=== PATIENT | male | born 1970 | race Caucasian/White ===

== ENCOUNTER 2021-11-12 09:26 | Day surgery (SDC) | payer OTHER ==
[~2021-11-12] VITALS: Ht 180.3 cm; Wt 93.5 kg
[2021-11-12] MEDS ORDERED: LOSA50 (09:58)
--- NOTE | 2021-11-12 10:33 | NUR ---
11/12/21 1033 Dnaa [place] TIMEOUT AND SITE CHECK IS DONE FOR THE SUPRACLAVICULAR BLOCK WITH DR ODONNELL.
--- NOTE | 2021-11-12 11:23 | NUR ---
11/12/21 1123 Isabella West, SPIDER, WEDGE, GELX3 USED FOR POSITIONING. LEFT ARM SECURED ON PADDED/GEL ARM BOARD.
== END 2021-11-12 13:25 | disposition home or self-care (01) ==
LOC: ORSCSDS 09:26
PROVIDERS: Orthopaedic Surgery
PROC: 0LU14KZ Supplement Right Shoulder Tendon with Nonautologous Tissue Substitute, Percutaneous Endoscopic Approach (ICD-10-PCS; principal; 2021-11-12 10:45)
PROC: 0LQ14ZZ Repair Right Shoulder Tendon, Percutaneous Endoscopic Approach (ICD-10-PCS; principal; 2021-11-12 10:45)
PROC: 0RNJ4ZZ Release Right Shoulder Joint, Percutaneous Endoscopic Approach (ICD-10-PCS; principal; 2021-11-12 10:45)
PROC: 0LS34ZZ Reposition Right Upper Arm Tendon, Percutaneous Endoscopic Approach (ICD-10-PCS; principal; 2021-11-12 10:45)
DX: M75.111 Incomplete rotator cuff tear or rupture of right shoulder, not specified as traumatic (principal); M75.21 Bicipital tendinitis, right shoulder; M75.41 Impingement syndrome of right shoulder; I10 Essential (primary) hypertension; Z87.891 Personal history of nicotine dependence; Z79.899 Other long term (current) drug therapy
CPT/HCPCS: C1713; J0171; J0690; J1100; J2250; J2405; J2704; J3010; J7120